=== PATIENT | male | born 1950 | race Caucasian/White ===

== ENCOUNTER 2022-10-13 14:23 | Inpatient (IN) | payer BC ==
[2022-10-13] MEDS: Ampicillin/Sulbactam Na 3 GM in Sodium Chloride 0.9% 100 ML IV SCH ×2 (16:40→21:54)
[2022-10-13] MEDS: Sodium Chloride 0.9% 10 ML Syringe FLUSH SCH ×4 (16:40→22:58)
[2022-10-13] MEDS ORDERED: Glucagon,Human Recombinant 1 MG Vial IM PRN (16:57)
[2022-10-13] MEDS ORDERED: 50% Dextrose in Water 50 ML Syringe IVPUSH PRN (16:57)
[2022-10-13] MEDS ORDERED: Docusate Sodium 100 MG Cap PO PRN (17:00)
[2022-10-13] MEDS: metFORMIN 500 MG Tab.ER PO SCH (17:23)
[2022-10-13] MEDS: Glimepiride 2 MG Tab PO SCH (17:32)
[2022-10-14] MEDS: Sodium Chloride 0.9% 10 ML Syringe FLUSH SCH ×8 (04:19→22:22)
[2022-10-14] MEDS: Ampicillin/Sulbactam Na 3 GM in Sodium Chloride 0.9% 100 ML IV SCH ×4 (04:20→22:13)
[2022-10-14 07:16] LABS: BASOPHILS ABSOLUTE AUTO 0.03 K/uL (0.00-0.20); BASOPHILS PERCENT AUTO 0.5 % (0.0-2.0); EOSINOPHILS ABSOLUTE AUTO 0.21 K/uL (0.00-0.50); EOSINOPHILS PERCENT AUTO 3.2 % (0.0-5.0); HEMATOCRIT 29.5 % (39.0-49.0); HEMOGLOBIN 9.5 g/dL (13.1-16.8); LYMPHOCYTES ABSOLUTE AUTO 1.41 K/uL (0.50-3.50); LYMPHOCYTES PERCENT AUTO 21.2 % (10.0-50.0); MEAN CORPUSCULAR HEMOGLOBIN 28.6 pg (28.2-33.3); MEAN CORPUSCULAR HGB CONC 32.2 g/dL (31.7-36.0); MEAN CORPUSCULAR VOLUME 88.9 fL (84.0-98.0); MONOCYTES ABSOLUTE AUTO 0.44 K/uL (0.00-1.00); MONOCYTES PERCENT AUTO 6.6 % (2.0-14.0); NEUTROPHILS ABSOLUTE AUTO 4.55 K/uL (1.40-7.00); NEUTROPHILS PERCENT AUTO 68.5 % (45.0-80.0); PLATELET COUNT,PLT 236 K/uL (150-350); RED BLOOD CELL COUNT 3.32 M/uL (4.33-5.41); RED CELL DISTRIBUTION WIDTH 16.1 % (11.2-14.1); WHITE BLOOD CELL COUNT,WBC 6.6 K/uL (4.0-10.2)
[2022-10-14 07:35] LABS: ALBUMIN 2.4 g/dL (3.4-5.0); BILIRUBIN TOTAL 0.3 mg/dL (0.2-1.0); CALCIUM 8.5 mg/dL (8.5-10.1); CREATININE 0.94 mg/dL (0.51-1.17); EST CRCL DRUG DOSING (CG) 80.26 mL/min; POTASSIUM,K 3.8 mmol/L (3.5-5.1); PROTEIN TOTAL,TP 6.5 g/dL (6.4-8.2)
[2022-10-14] MEDS: Ferrous Sulfate 325 MG Tab PO SCH (08:05)
[2022-10-14] MEDS: Oxybutynin 5 MG Tab.ER PO SCH (08:06)
[2022-10-14] MEDS: Tamsulosin 0.4 MG Cap.ER PO SCH (08:06)
[2022-10-14] MEDS: Lisinopril 20 MG Tab PO SCH (08:06)
[2022-10-14] MEDS: Finasteride 5 MG Tab PO SCH (08:07)
[2022-10-14] MEDS: Glimepiride 2 MG Tab PO SCH ×2 (08:07→17:31)
[2022-10-14] MEDS: metFORMIN 500 MG Tab.ER PO SCH (08:07)
[2022-10-14] MEDS: Multivitamin Tab PO SCH (08:07)
[2022-10-14] MEDS: atorvaSTATin 20 MG Tab PO SCH (08:07)
[2022-10-14] MEDS: Aspirin 81 MG Tab.EC PO SCH (08:07)
[2022-10-14] MEDS: Magnesium Oxide 400 MG Tab PO SCH (08:07)
[2022-10-14] MEDS: Hydrochlorothiazide 25 MG Tab PO SCH (08:07)
[2022-10-14] MEDS: Brimonidine 0.2% Ophth Soln 5 ML Bottle EYELF SCH (08:11)
[2022-10-14] MEDS: Insulin Glarg,Human.Rec.Analog 100 Unit/ML SUBCUT SCH (08:11)
[2022-10-14] MEDS: Timolol Maleate 0.5% Ophth Soln 5 ML Bottle EYELF SCH (08:11)
[2022-10-14] MEDS: metFORMIN 500 MG Tab PO SCH (17:31)
[2022-10-14] MEDS: Acetaminophen 500 MG Tab PO PRN (22:26)
[2022-10-15] MEDS: Sodium Chloride 0.9% 10 ML Syringe FLUSH SCH ×8 (03:34→22:06)
[2022-10-15] MEDS: Ampicillin/Sulbactam Na 3 GM in Sodium Chloride 0.9% 100 ML IV SCH ×4 (03:35→22:04)
[2022-10-15] MEDS: Acetaminophen 500 MG Tab PO PRN ×2 (04:50→23:39)
[2022-10-15] MEDS: Brimonidine 0.2% Ophth Soln 5 ML Bottle EYELF SCH (07:36)
[2022-10-15] MEDS: Timolol Maleate 0.5% Ophth Soln 5 ML Bottle EYELF SCH (07:37)
[2022-10-15] MEDS: Aspirin 81 MG Tab.EC PO SCH (07:38)
[2022-10-15] MEDS: Multivitamin Tab PO SCH (07:38)
[2022-10-15] MEDS: Finasteride 5 MG Tab PO SCH (07:39)
[2022-10-15] MEDS: Tamsulosin 0.4 MG Cap.ER PO SCH (07:39)
[2022-10-15] MEDS: Magnesium Oxide 400 MG Tab PO SCH (07:39)
[2022-10-15] MEDS: Glimepiride 2 MG Tab PO SCH ×2 (07:39→17:07)
[2022-10-15] MEDS: atorvaSTATin 20 MG Tab PO SCH (07:40)
[2022-10-15] MEDS: Lisinopril 20 MG Tab PO SCH (07:41)
[2022-10-15] MEDS: Oxybutynin 5 MG Tab.ER PO SCH (07:41)
[2022-10-15] MEDS: Cholecalciferol (Vitamin D3) 25 MCG Tab PO SCH (07:41)
[2022-10-15] MEDS: Hydrochlorothiazide 25 MG Tab PO SCH (07:42)
[2022-10-15] MEDS: metFORMIN 500 MG Tab PO SCH ×2 (07:42→17:07)
[2022-10-15] MEDS: Ferrous Sulfate 325 MG Tab PO SCH (07:44)
[2022-10-15] MEDS: Insulin Glarg,Human.Rec.Analog 100 Unit/ML SUBCUT SCH (08:59)
[2022-10-16] MEDS: Ampicillin/Sulbactam Na 3 GM in Sodium Chloride 0.9% 100 ML IV SCH ×4 (05:25→21:53)
[2022-10-16] MEDS: Sodium Chloride 0.9% 10 ML Syringe FLUSH SCH ×7 (05:25→23:00)
[2022-10-16] MEDS: Aspirin 81 MG Tab.EC PO SCH (08:27)
[2022-10-16] MEDS: Magnesium Oxide 400 MG Tab PO SCH (08:28)
[2022-10-16] MEDS: Glimepiride 2 MG Tab PO SCH ×2 (08:28→17:37)
[2022-10-16] MEDS: metFORMIN 500 MG Tab PO SCH ×2 (08:29→17:37)
[2022-10-16] MEDS: Finasteride 5 MG Tab PO SCH (08:29)
[2022-10-16] MEDS: Oxybutynin 5 MG Tab.ER PO SCH (08:30)
[2022-10-16] MEDS: atorvaSTATin 20 MG Tab PO SCH (08:30)
[2022-10-16] MEDS: Ferrous Sulfate 325 MG Tab PO SCH (08:31)
[2022-10-16] MEDS: Lisinopril 20 MG Tab PO SCH (08:31)
[2022-10-16] MEDS: Multivitamin Tab PO SCH (08:31)
[2022-10-16] MEDS: Tamsulosin 0.4 MG Cap.ER PO SCH (08:32)
[2022-10-16] MEDS: Brimonidine 0.2% Ophth Soln 5 ML Bottle EYELF SCH (08:32)
[2022-10-16] MEDS: Hydrochlorothiazide 25 MG Tab PO SCH (08:37)
[2022-10-16] MEDS: Cholecalciferol (Vitamin D3) 25 MCG Tab PO SCH (08:38)
[2022-10-16] MEDS: Timolol Maleate 0.5% Ophth Soln 5 ML Bottle EYELF SCH (08:39)
[2022-10-16] MEDS: Insulin Glarg,Human.Rec.Analog 100 Unit/ML SUBCUT SCH (12:27)
[2022-10-16] MEDS: Acetaminophen 500 MG Tab PO PRN (23:42)
[2022-10-16] MEDS: diphenhydrAMINE 25 MG Cap PO PRN (23:42)
[2022-10-17] MEDS: Sodium Chloride 0.9% 10 ML Syringe FLUSH SCH ×10 (01:09→23:33)
[2022-10-17] MEDS: Ampicillin/Sulbactam Na 3 GM in Sodium Chloride 0.9% 100 ML IV SCH ×4 (03:22→22:23)
[2022-10-17] MEDS: Oxybutynin 5 MG Tab.ER PO SCH (08:21)
[2022-10-17] MEDS: metFORMIN 500 MG Tab PO SCH ×2 (08:22→17:26)
[2022-10-17] MEDS: Ferrous Sulfate 325 MG Tab PO SCH (08:22)
[2022-10-17] MEDS: Aspirin 81 MG Tab.EC PO SCH (08:22)
[2022-10-17] MEDS: Magnesium Oxide 400 MG Tab PO SCH (08:22)
[2022-10-17] MEDS: atorvaSTATin 20 MG Tab PO SCH (08:22)
[2022-10-17] MEDS: Glimepiride 2 MG Tab PO SCH ×2 (08:23→17:26)
[2022-10-17] MEDS: Finasteride 5 MG Tab PO SCH (08:23)
[2022-10-17] MEDS: Hydrochlorothiazide 25 MG Tab PO SCH (08:23)
[2022-10-17] MEDS: Multivitamin Tab PO SCH (08:23)
[2022-10-17] MEDS: Tamsulosin 0.4 MG Cap.ER PO SCH (08:23)
[2022-10-17] MEDS: Cholecalciferol (Vitamin D3) 25 MCG Tab PO SCH (08:23)
[2022-10-17] MEDS: Lisinopril 20 MG Tab PO SCH (08:24)
[2022-10-17] MEDS: Timolol Maleate 0.5% Ophth Soln 5 ML Bottle EYELF SCH (08:25)
[2022-10-17] MEDS: Brimonidine 0.2% Ophth Soln 5 ML Bottle EYELF SCH (08:34)
[2022-10-17] MEDS: Insulin Glarg,Human.Rec.Analog 100 Unit/ML SUBCUT SCH (16:00)
[2022-10-18] MEDS: Ampicillin/Sulbactam Na 3 GM in Sodium Chloride 0.9% 100 ML IV SCH ×4 (04:31→21:49)
[2022-10-18] MEDS: Sodium Chloride 0.9% 10 ML Syringe FLUSH SCH ×7 (04:32→21:49)
[2022-10-18] MEDS: Multivitamin Tab PO SCH (08:38)
[2022-10-18] MEDS: Lisinopril 20 MG Tab PO SCH (08:39)
[2022-10-18] MEDS: Cholecalciferol (Vitamin D3) 25 MCG Tab PO SCH (08:39)
[2022-10-18] MEDS: metFORMIN 500 MG Tab PO SCH ×2 (08:40→17:31)
[2022-10-18] MEDS: Tamsulosin 0.4 MG Cap.ER PO SCH (08:41)
[2022-10-18] MEDS: Glimepiride 2 MG Tab PO SCH ×2 (08:41→17:31)
[2022-10-18] MEDS: Magnesium Oxide 400 MG Tab PO SCH (08:41)
[2022-10-18] MEDS: Aspirin 81 MG Tab.EC PO SCH (08:42)
[2022-10-18] MEDS: Finasteride 5 MG Tab PO SCH (08:43)
[2022-10-18] MEDS: atorvaSTATin 20 MG Tab PO SCH (08:43)
[2022-10-18] MEDS: Hydrochlorothiazide 25 MG Tab PO SCH (08:43)
[2022-10-18] MEDS: Oxybutynin 5 MG Tab.ER PO SCH (08:44)
[2022-10-18] MEDS: Ferrous Sulfate 325 MG Tab PO SCH (08:45)
[2022-10-18] MEDS: Insulin Glarg,Human.Rec.Analog 100 Unit/ML SUBCUT SCH (08:46)
[2022-10-18] MEDS: Brimonidine 0.2% Ophth Soln 5 ML Bottle EYELF SCH (08:48)
[2022-10-18] MEDS: Timolol Maleate 0.5% Ophth Soln 5 ML Bottle EYELF SCH (08:48)
[2022-10-18] MEDS: Acetaminophen 500 MG Tab PO PRN (23:58)
[2022-10-18] MEDS: diphenhydrAMINE 25 MG Cap PO PRN (23:58)
[2022-10-19] MEDS: Sodium Chloride 0.9% 10 ML Syringe FLUSH SCH ×9 (04:21→22:34)
[2022-10-19] MEDS: Ampicillin/Sulbactam Na 3 GM in Sodium Chloride 0.9% 100 ML IV SCH ×4 (04:22→21:32)
[2022-10-19] MEDS: Cholecalciferol (Vitamin D3) 25 MCG Tab PO SCH (08:18)
[2022-10-19] MEDS: Glimepiride 2 MG Tab PO SCH ×2 (08:18→17:07)
[2022-10-19] MEDS: Magnesium Oxide 400 MG Tab PO SCH (08:19)
[2022-10-19] MEDS: Hydrochlorothiazide 25 MG Tab PO SCH (08:19)
[2022-10-19] MEDS: Finasteride 5 MG Tab PO SCH (08:19)
[2022-10-19] MEDS: metFORMIN 500 MG Tab PO SCH ×2 (08:19→17:07)
[2022-10-19] MEDS: atorvaSTATin 20 MG Tab PO SCH (08:19)
[2022-10-19] MEDS: Multivitamin Tab PO SCH (08:19)
[2022-10-19] MEDS: Tamsulosin 0.4 MG Cap.ER PO SCH (08:19)
[2022-10-19] MEDS: Lisinopril 20 MG Tab PO SCH (08:19)
[2022-10-19] MEDS: Ferrous Sulfate 325 MG Tab PO SCH (08:19)
[2022-10-19] MEDS: Oxybutynin 5 MG Tab.ER PO SCH (08:20)
[2022-10-19] MEDS: Aspirin 81 MG Tab.EC PO SCH (08:20)
[2022-10-19] MEDS: Timolol Maleate 0.5% Ophth Soln 5 ML Bottle EYELF SCH (08:21)
[2022-10-19] MEDS: Brimonidine 0.2% Ophth Soln 5 ML Bottle EYELF SCH (08:32)
[2022-10-19] MEDS: diphenhydrAMINE 25 MG Cap PO PRN (22:47)
[2022-10-19] MEDS: Acetaminophen 500 MG Tab PO PRN (22:47)
[2022-10-20] MEDS: Sodium Chloride 0.9% 10 ML Syringe FLUSH SCH ×8 (04:19→22:54)
[2022-10-20] MEDS: Ampicillin/Sulbactam Na 3 GM in Sodium Chloride 0.9% 100 ML IV SCH ×4 (04:20→21:48)
[2022-10-20] MEDS: Brimonidine 0.2% Ophth Soln 5 ML Bottle EYELF SCH (08:08)
[2022-10-20] MEDS: Timolol Maleate 0.5% Ophth Soln 5 ML Bottle EYELF SCH (08:09)
[2022-10-20] MEDS: atorvaSTATin 20 MG Tab PO SCH (08:31)
[2022-10-20] MEDS: Cholecalciferol (Vitamin D3) 25 MCG Tab PO SCH (08:31)
[2022-10-20] MEDS: metFORMIN 500 MG Tab PO SCH ×2 (08:32→17:18)
[2022-10-20] MEDS: Oxybutynin 5 MG Tab.ER PO SCH (08:32)
[2022-10-20] MEDS: Tamsulosin 0.4 MG Cap.ER PO SCH (08:32)
[2022-10-20] MEDS: Ferrous Sulfate 325 MG Tab PO SCH (08:33)
[2022-10-20] MEDS: Glimepiride 2 MG Tab PO SCH ×2 (08:33→17:18)
[2022-10-20] MEDS: Finasteride 5 MG Tab PO SCH (08:33)
[2022-10-20] MEDS: Magnesium Oxide 400 MG Tab PO SCH (08:33)
[2022-10-20] MEDS: Aspirin 81 MG Tab.EC PO SCH (08:33)
[2022-10-20] MEDS: Hydrochlorothiazide 25 MG Tab PO SCH (08:34)
[2022-10-20] MEDS: Lisinopril 20 MG Tab PO SCH (08:34)
[2022-10-20] MEDS: Multivitamin Tab PO SCH (08:34)
[2022-10-20] MEDS: Acetaminophen 500 MG Tab PO PRN ×2 (09:09→21:50)
[2022-10-20 15:59] LABS: BASOPHILS ABSOLUTE AUTO 0.03 K/uL (0.00-0.20); BASOPHILS PERCENT AUTO 0.5 % (0.0-2.0); EOSINOPHILS ABSOLUTE AUTO 0.17 K/uL (0.00-0.50); EOSINOPHILS PERCENT AUTO 3.1 % (0.0-5.0); HEMATOCRIT 31.4 % (39.0-49.0); HEMOGLOBIN 10.2 g/dL (13.1-16.8); LYMPHOCYTES ABSOLUTE AUTO 1.25 K/uL (0.50-3.50); LYMPHOCYTES PERCENT AUTO 22.5 % (10.0-50.0); MEAN CORPUSCULAR HEMOGLOBIN 28.8 pg (28.2-33.3); MEAN CORPUSCULAR HGB CONC 32.5 g/dL (31.7-36.0); MEAN CORPUSCULAR VOLUME 88.7 fL (84.0-98.0); MONOCYTES ABSOLUTE AUTO 0.42 K/uL (0.00-1.00); MONOCYTES PERCENT AUTO 7.6 % (2.0-14.0); NEUTROPHILS ABSOLUTE AUTO 3.68 K/uL (1.40-7.00); NEUTROPHILS PERCENT AUTO 66.3 % (45.0-80.0); PLATELET COUNT,PLT 163 K/uL (150-350); RED BLOOD CELL COUNT 3.54 M/uL (4.33-5.41); RED CELL DISTRIBUTION WIDTH 16.5 % (11.2-14.1); WHITE BLOOD CELL COUNT,WBC 5.6 K/uL (4.0-10.2)
[2022-10-20 16:10] LABS: ANION GAP 8.6 meq/L (7-15); CALCIUM 8.9 mg/dL (8.5-10.1); CARBON DIOXIDE,CO2 28.4 mmol/L (21.0-32.0); CREATININE 1.07 mg/dL (0.51-1.17); EST CRCL DRUG DOSING (CG) 70.51 mL/min
[2022-10-20] MEDS: diphenhydrAMINE 25 MG Cap PO PRN (21:50)
[2022-10-21] MEDS: Sodium Chloride 0.9% 10 ML Syringe FLUSH SCH ×8 (04:05→23:07)
[2022-10-21] MEDS: Ampicillin/Sulbactam Na 3 GM in Sodium Chloride 0.9% 100 ML IV SCH ×4 (04:06→22:07)
[2022-10-21] MEDS: Multivitamin Tab PO SCH (08:01)
[2022-10-21] MEDS: Ferrous Sulfate 325 MG Tab PO SCH (08:02)
[2022-10-21] MEDS: Tamsulosin 0.4 MG Cap.ER PO SCH (08:02)
[2022-10-21] MEDS: Magnesium Oxide 400 MG Tab PO SCH (08:03)
[2022-10-21] MEDS: Oxybutynin 5 MG Tab.ER PO SCH (08:08)
[2022-10-21] MEDS: atorvaSTATin 20 MG Tab PO SCH (08:08)
[2022-10-21] MEDS: Aspirin 81 MG Tab.EC PO SCH (08:08)
[2022-10-21] MEDS: metFORMIN 500 MG Tab PO SCH ×2 (08:10→17:05)
[2022-10-21] MEDS: Glimepiride 2 MG Tab PO SCH ×2 (08:14→17:07)
[2022-10-21] MEDS: Finasteride 5 MG Tab PO SCH (08:14)
[2022-10-21] MEDS: Hydrochlorothiazide 25 MG Tab PO SCH (08:14)
[2022-10-21] MEDS: Cholecalciferol (Vitamin D3) 25 MCG Tab PO SCH (08:15)
[2022-10-21] MEDS: Brimonidine 0.2% Ophth Soln 5 ML Bottle EYELF SCH (08:17)
[2022-10-21] MEDS: Timolol Maleate 0.5% Ophth Soln 5 ML Bottle EYELF SCH (08:22)
[2022-10-21] MEDS: Lisinopril 20 MG Tab PO SCH (08:25)
[2022-10-21] MEDS: diphenhydrAMINE 25 MG Cap PO PRN (22:07)
[2022-10-21] MEDS: Acetaminophen 500 MG Tab PO PRN (22:11)
[2022-10-22] MEDS: Sodium Chloride 0.9% 10 ML Syringe FLUSH SCH ×8 (04:11→22:34)
[2022-10-22] MEDS: Ampicillin/Sulbactam Na 3 GM in Sodium Chloride 0.9% 100 ML IV SCH ×4 (04:11→22:34)
[2022-10-22] MEDS: Oxybutynin 5 MG Tab.ER PO SCH (07:50)
[2022-10-22] MEDS: Timolol Maleate 0.5% Ophth Soln 5 ML Bottle EYELF SCH (07:50)
[2022-10-22] MEDS: atorvaSTATin 20 MG Tab PO SCH (07:52)
[2022-10-22] MEDS: Cholecalciferol (Vitamin D3) 25 MCG Tab PO SCH (07:52)
[2022-10-22] MEDS: Ferrous Sulfate 325 MG Tab PO SCH (07:53)
[2022-10-22] MEDS: Aspirin 81 MG Tab.EC PO SCH (07:53)
[2022-10-22] MEDS: Magnesium Oxide 400 MG Tab PO SCH (07:53)
[2022-10-22] MEDS: Lisinopril 20 MG Tab PO SCH (07:54)
[2022-10-22] MEDS: Glimepiride 2 MG Tab PO SCH ×2 (07:56→17:03)
[2022-10-22] MEDS: Multivitamin Tab PO SCH (07:56)
[2022-10-22] MEDS: Hydrochlorothiazide 25 MG Tab PO SCH (07:58)
[2022-10-22] MEDS: metFORMIN 500 MG Tab PO SCH ×2 (07:58→17:03)
[2022-10-22] MEDS: Tamsulosin 0.4 MG Cap.ER PO SCH (07:59)
[2022-10-22] MEDS: Finasteride 5 MG Tab PO SCH (08:00)
[2022-10-22] MEDS: Brimonidine 0.2% Ophth Soln 5 ML Bottle EYELF SCH (08:00)
[2022-10-22] MEDS: diphenhydrAMINE 25 MG Cap PO PRN (23:32)
[2022-10-22] MEDS: Acetaminophen 500 MG Tab PO PRN (23:32)
[2022-10-23] MEDS: Sodium Chloride 0.9% 10 ML Syringe FLUSH SCH ×8 (03:53→22:19)
[2022-10-23] MEDS: Ampicillin/Sulbactam Na 3 GM in Sodium Chloride 0.9% 100 ML IV SCH ×4 (03:53→22:19)
[2022-10-23] MEDS: Timolol Maleate 0.5% Ophth Soln 5 ML Bottle EYELF SCH (08:32)
[2022-10-23] MEDS: Tamsulosin 0.4 MG Cap.ER PO SCH (08:33)
[2022-10-23] MEDS: metFORMIN 500 MG Tab PO SCH ×2 (08:33→17:12)
[2022-10-23] MEDS: Ferrous Sulfate 325 MG Tab PO SCH (08:34)
[2022-10-23] MEDS: Glimepiride 2 MG Tab PO SCH ×2 (08:34→17:11)
[2022-10-23] MEDS: Finasteride 5 MG Tab PO SCH (08:34)
[2022-10-23] MEDS: Aspirin 81 MG Tab.EC PO SCH (08:34)
[2022-10-23] MEDS: Multivitamin Tab PO SCH (08:34)
[2022-10-23] MEDS: Magnesium Oxide 400 MG Tab PO SCH (08:35)
[2022-10-23] MEDS: Cholecalciferol (Vitamin D3) 25 MCG Tab PO SCH (08:36)
[2022-10-23] MEDS: Hydrochlorothiazide 25 MG Tab PO SCH (08:37)
[2022-10-23] MEDS: atorvaSTATin 20 MG Tab PO SCH (08:37)
[2022-10-23] MEDS: Oxybutynin 5 MG Tab.ER PO SCH (08:38)
[2022-10-23] MEDS: Lisinopril 20 MG Tab PO SCH (08:38)
[2022-10-23] MEDS: Brimonidine 0.2% Ophth Soln 5 ML Bottle EYELF SCH (08:40)
[2022-10-23] MEDS: diphenhydrAMINE 25 MG Cap PO PRN (23:21)
[2022-10-23] MEDS: Acetaminophen 500 MG Tab PO PRN (23:21)
[2022-10-24] MEDS: Ampicillin/Sulbactam Na 3 GM in Sodium Chloride 0.9% 100 ML IV SCH ×4 (04:04→21:40)
[2022-10-24] MEDS: Sodium Chloride 0.9% 10 ML Syringe FLUSH SCH ×8 (04:04→22:07)
[2022-10-24] MEDS: Multivitamin Tab PO SCH (08:25)
[2022-10-24] MEDS: Cholecalciferol (Vitamin D3) 25 MCG Tab PO SCH (08:25)
[2022-10-24] MEDS: Aspirin 81 MG Tab.EC PO SCH (08:26)
[2022-10-24] MEDS: Oxybutynin 5 MG Tab.ER PO SCH (08:27)
[2022-10-24] MEDS: metFORMIN 500 MG Tab PO SCH ×2 (08:27→17:46)
[2022-10-24] MEDS: Finasteride 5 MG Tab PO SCH (08:27)
[2022-10-24] MEDS: Tamsulosin 0.4 MG Cap.ER PO SCH (08:28)
[2022-10-24] MEDS: atorvaSTATin 20 MG Tab PO SCH (08:28)
[2022-10-24] MEDS: Ferrous Sulfate 325 MG Tab PO SCH (08:29)
[2022-10-24] MEDS: Hydrochlorothiazide 25 MG Tab PO SCH (08:29)
[2022-10-24] MEDS: Glimepiride 2 MG Tab PO SCH ×2 (08:29→17:46)
[2022-10-24] MEDS: Lisinopril 20 MG Tab PO SCH (08:29)
[2022-10-24] MEDS: Magnesium Oxide 400 MG Tab PO SCH (08:29)
[2022-10-24] MEDS: Brimonidine 0.2% Ophth Soln 5 ML Bottle EYELF SCH (08:30)
[2022-10-24] MEDS: Timolol Maleate 0.5% Ophth Soln 5 ML Bottle EYELF SCH (08:30)
[2022-10-25] MEDS: Ampicillin/Sulbactam Na 3 GM in Sodium Chloride 0.9% 100 ML IV SCH ×5 (03:38→22:07)
[2022-10-25] MEDS: Sodium Chloride 0.9% 10 ML Syringe FLUSH SCH ×10 (03:39→22:07)
[2022-10-25] MEDS: Multivitamin Tab PO SCH (07:24)
[2022-10-25] MEDS: Aspirin 81 MG Tab.EC PO SCH (07:24)
[2022-10-25] MEDS: Oxybutynin 5 MG Tab.ER PO SCH (07:24)
[2022-10-25] MEDS: Finasteride 5 MG Tab PO SCH (07:24)
[2022-10-25] MEDS: Tamsulosin 0.4 MG Cap.ER PO SCH (07:24)
[2022-10-25] MEDS: Cholecalciferol (Vitamin D3) 25 MCG Tab PO SCH (07:24)
[2022-10-25] MEDS: Magnesium Oxide 400 MG Tab PO SCH (07:24)
[2022-10-25] MEDS: Ferrous Sulfate 325 MG Tab PO SCH (07:25)
[2022-10-25] MEDS: atorvaSTATin 20 MG Tab PO SCH (07:25)
[2022-10-25] MEDS: metFORMIN 500 MG Tab PO SCH ×2 (07:25→17:04)
[2022-10-25] MEDS: Lisinopril 20 MG Tab PO SCH (07:26)
[2022-10-25] MEDS: Glimepiride 2 MG Tab PO SCH ×2 (07:26→17:04)
[2022-10-25] MEDS: Brimonidine 0.2% Ophth Soln 5 ML Bottle EYELF SCH (07:27)
[2022-10-25] MEDS: Timolol Maleate 0.5% Ophth Soln 5 ML Bottle EYELF SCH (07:27)
[2022-10-25] MEDS: Hydrochlorothiazide 25 MG Tab PO SCH (07:27)
[2022-10-25] MEDS: Acetaminophen 500 MG Tab PO PRN (08:17)
[2022-10-25] MEDS: Simethicone 125 MG Tab.Chew PO PRN (08:18)
[2022-10-26] MEDS: Sodium Chloride 0.9% 10 ML Syringe FLUSH SCH ×8 (04:50→22:42)
[2022-10-26] MEDS: Ampicillin/Sulbactam Na 3 GM in Sodium Chloride 0.9% 100 ML IV SCH ×4 (04:50→21:35)
[2022-10-26] MEDS: Oxybutynin 5 MG Tab.ER PO SCH (07:59)
[2022-10-26] MEDS: Multivitamin Tab PO SCH (07:59)
[2022-10-26] MEDS: Tamsulosin 0.4 MG Cap.ER PO SCH (07:59)
[2022-10-26] MEDS: Glimepiride 2 MG Tab PO SCH ×2 (07:59→17:53)
[2022-10-26] MEDS: Finasteride 5 MG Tab PO SCH (07:59)
[2022-10-26] MEDS: Magnesium Oxide 400 MG Tab PO SCH (08:00)
[2022-10-26] MEDS: metFORMIN 500 MG Tab PO SCH ×2 (08:00→17:53)
[2022-10-26] MEDS: Hydrochlorothiazide 25 MG Tab PO SCH (08:00)
[2022-10-26] MEDS: Aspirin 81 MG Tab.EC PO SCH (08:00)
[2022-10-26] MEDS: atorvaSTATin 20 MG Tab PO SCH (08:00)
[2022-10-26] MEDS: Ferrous Sulfate 325 MG Tab PO SCH (08:00)
[2022-10-26] MEDS: Cholecalciferol (Vitamin D3) 25 MCG Tab PO SCH (08:00)
[2022-10-26] MEDS: Timolol Maleate 0.5% Ophth Soln 5 ML Bottle EYELF SCH (08:01)
[2022-10-26] MEDS: Lisinopril 20 MG Tab PO SCH (08:01)
[2022-10-26] MEDS: Brimonidine 0.2% Ophth Soln 5 ML Bottle EYELF SCH (08:01)
[2022-10-27] MEDS: Sodium Chloride 0.9% 10 ML Syringe FLUSH SCH ×8 (04:01→22:21)
[2022-10-27] MEDS: Ampicillin/Sulbactam Na 3 GM in Sodium Chloride 0.9% 100 ML IV SCH ×4 (04:01→22:20)
[2022-10-27] MEDS: Cholecalciferol (Vitamin D3) 25 MCG Tab PO SCH (07:42)
[2022-10-27] MEDS: metFORMIN 500 MG Tab PO SCH ×2 (07:42→17:20)
[2022-10-27] MEDS: atorvaSTATin 20 MG Tab PO SCH (07:42)
[2022-10-27] MEDS: Ferrous Sulfate 325 MG Tab PO SCH (07:42)
[2022-10-27] MEDS: Magnesium Oxide 400 MG Tab PO SCH (07:42)
[2022-10-27] MEDS: Lisinopril 20 MG Tab PO SCH (07:42)
[2022-10-27] MEDS: Hydrochlorothiazide 25 MG Tab PO SCH (07:43)
[2022-10-27] MEDS: Aspirin 81 MG Tab.EC PO SCH (07:43)
[2022-10-27] MEDS: Tamsulosin 0.4 MG Cap.ER PO SCH (07:43)
[2022-10-27] MEDS: Glimepiride 2 MG Tab PO SCH ×2 (07:43→17:20)
[2022-10-27] MEDS: Finasteride 5 MG Tab PO SCH (07:43)
[2022-10-27] MEDS: Multivitamin Tab PO SCH (07:43)
[2022-10-27] MEDS: Oxybutynin 5 MG Tab.ER PO SCH (07:43)
[2022-10-27] MEDS: Brimonidine 0.2% Ophth Soln 5 ML Bottle EYELF SCH (07:46)
[2022-10-27] MEDS: Timolol Maleate 0.5% Ophth Soln 5 ML Bottle EYELF SCH (07:53)
[2022-10-27] MEDS: Simethicone 125 MG Tab.Chew PO PRN (10:00)
[2022-10-28] MEDS: Sodium Chloride 0.9% 10 ML Syringe FLUSH SCH ×8 (04:18→22:10)
[2022-10-28] MEDS: Ampicillin/Sulbactam Na 3 GM in Sodium Chloride 0.9% 100 ML IV SCH ×4 (04:19→22:10)
[2022-10-28] MEDS: Brimonidine 0.2% Ophth Soln 5 ML Bottle EYELF SCH (07:44)
[2022-10-28] MEDS: Timolol Maleate 0.5% Ophth Soln 5 ML Bottle EYELF SCH (07:45)
[2022-10-28] MEDS: Ferrous Sulfate 325 MG Tab PO SCH (07:46)
[2022-10-28] MEDS: metFORMIN 500 MG Tab PO SCH ×2 (07:46→17:12)
[2022-10-28] MEDS: Glimepiride 2 MG Tab PO SCH ×2 (07:47→17:12)
[2022-10-28] MEDS: Magnesium Oxide 400 MG Tab PO SCH (07:47)
[2022-10-28] MEDS: Tamsulosin 0.4 MG Cap.ER PO SCH (07:47)
[2022-10-28] MEDS: Lisinopril 20 MG Tab PO SCH (07:49)
[2022-10-28] MEDS: Oxybutynin 5 MG Tab.ER PO SCH (07:49)
[2022-10-28] MEDS: Hydrochlorothiazide 25 MG Tab PO SCH (07:50)
[2022-10-28] MEDS: atorvaSTATin 20 MG Tab PO SCH (07:50)
[2022-10-28] MEDS: Multivitamin Tab PO SCH (07:50)
[2022-10-28] MEDS: Aspirin 81 MG Tab.EC PO SCH (07:50)
[2022-10-28] MEDS: Finasteride 5 MG Tab PO SCH (07:50)
[2022-10-28] MEDS: Cholecalciferol (Vitamin D3) 25 MCG Tab PO SCH (07:51)
[2022-10-29] MEDS: Sodium Chloride 0.9% 10 ML Syringe FLUSH SCH ×8 (04:25→22:10)
[2022-10-29] MEDS: Ampicillin/Sulbactam Na 3 GM in Sodium Chloride 0.9% 100 ML IV SCH ×4 (04:26→22:09)
[2022-10-29] MEDS: Ferrous Sulfate 325 MG Tab PO SCH (07:45)
[2022-10-29] MEDS: Timolol Maleate 0.5% Ophth Soln 5 ML Bottle EYELF SCH (07:45)
[2022-10-29] MEDS: Tamsulosin 0.4 MG Cap.ER PO SCH (07:45)
[2022-10-29] MEDS: Oxybutynin 5 MG Tab.ER PO SCH (07:45)
[2022-10-29] MEDS: Brimonidine 0.2% Ophth Soln 5 ML Bottle EYELF SCH (07:45)
[2022-10-29] MEDS: metFORMIN 500 MG Tab PO SCH ×2 (07:46→17:24)
[2022-10-29] MEDS: Hydrochlorothiazide 25 MG Tab PO SCH (07:49)
[2022-10-29] MEDS: Cholecalciferol (Vitamin D3) 25 MCG Tab PO SCH (07:49)
[2022-10-29] MEDS: Aspirin 81 MG Tab.EC PO SCH (07:50)
[2022-10-29] MEDS: Multivitamin Tab PO SCH (07:51)
[2022-10-29] MEDS: Finasteride 5 MG Tab PO SCH (07:51)
[2022-10-29] MEDS: Glimepiride 2 MG Tab PO SCH ×2 (07:51→17:24)
[2022-10-29] MEDS: Magnesium Oxide 400 MG Tab PO SCH (07:51)
[2022-10-29] MEDS: atorvaSTATin 20 MG Tab PO SCH (07:51)
[2022-10-29] MEDS: Lisinopril 20 MG Tab PO SCH (07:51)
[2022-10-29] MEDS: diphenhydrAMINE 25 MG Cap PO PRN (23:24)
[2022-10-29] MEDS: Acetaminophen 500 MG Tab PO PRN (23:24)
[2022-10-30] MEDS: Sodium Chloride 0.9% 10 ML Syringe FLUSH SCH ×8 (03:57→23:30)
[2022-10-30] MEDS: Ampicillin/Sulbactam Na 3 GM in Sodium Chloride 0.9% 100 ML IV SCH ×4 (03:57→22:24)
[2022-10-30] MEDS: Lisinopril 20 MG Tab PO SCH (08:09)
[2022-10-30] MEDS: Oxybutynin 5 MG Tab.ER PO SCH (08:09)
[2022-10-30] MEDS: Multivitamin Tab PO SCH (08:09)
[2022-10-30] MEDS: Cholecalciferol (Vitamin D3) 25 MCG Tab PO SCH (08:10)
[2022-10-30] MEDS: Hydrochlorothiazide 25 MG Tab PO SCH (08:12)
[2022-10-30] MEDS: Magnesium Oxide 400 MG Tab PO SCH (08:12)
[2022-10-30] MEDS: metFORMIN 500 MG Tab PO SCH ×2 (08:12→17:32)
[2022-10-30] MEDS: Brimonidine 0.2% Ophth Soln 5 ML Bottle EYELF SCH (08:12)
[2022-10-30] MEDS: Finasteride 5 MG Tab PO SCH (08:12)
[2022-10-30] MEDS: Tamsulosin 0.4 MG Cap.ER PO SCH (08:12)
[2022-10-30] MEDS: Glimepiride 2 MG Tab PO SCH ×2 (08:12→17:33)
[2022-10-30] MEDS: Ferrous Sulfate 325 MG Tab PO SCH (08:12)
[2022-10-30] MEDS: Aspirin 81 MG Tab.EC PO SCH (08:12)
[2022-10-30] MEDS: atorvaSTATin 20 MG Tab PO SCH (08:12)
[2022-10-30] MEDS: Timolol Maleate 0.5% Ophth Soln 5 ML Bottle EYELF SCH (08:13)
[2022-10-30] MEDS: Acetaminophen 500 MG Tab PO PRN (23:11)
[2022-10-30] MEDS: diphenhydrAMINE 25 MG Cap PO PRN (23:14)
[2022-10-31] MEDS: Sodium Chloride 0.9% 10 ML Syringe FLUSH SCH ×8 (04:01→22:38)
[2022-10-31] MEDS: Ampicillin/Sulbactam Na 3 GM in Sodium Chloride 0.9% 100 ML IV SCH ×4 (04:02→21:35)
[2022-10-31] MEDS: Timolol Maleate 0.5% Ophth Soln 5 ML Bottle EYELF SCH (08:22)
[2022-10-31] MEDS: Aspirin 81 MG Tab.EC PO SCH (08:23)
[2022-10-31] MEDS: Brimonidine 0.2% Ophth Soln 5 ML Bottle EYELF SCH (08:23)
[2022-10-31] MEDS: Oxybutynin 5 MG Tab.ER PO SCH (08:24)
[2022-10-31] MEDS: Magnesium Oxide 400 MG Tab PO SCH (08:25)
[2022-10-31] MEDS: Tamsulosin 0.4 MG Cap.ER PO SCH (08:25)
[2022-10-31] MEDS: Cholecalciferol (Vitamin D3) 25 MCG Tab PO SCH (08:26)
[2022-10-31] MEDS: atorvaSTATin 20 MG Tab PO SCH (08:26)
[2022-10-31] MEDS: Multivitamin Tab PO SCH (08:26)
[2022-10-31] MEDS: metFORMIN 500 MG Tab PO SCH ×2 (08:26→17:08)
[2022-10-31] MEDS: Ferrous Sulfate 325 MG Tab PO SCH (08:26)
[2022-10-31] MEDS: Lisinopril 20 MG Tab PO SCH (08:27)
[2022-10-31] MEDS: Glimepiride 2 MG Tab PO SCH ×2 (08:27→17:08)
[2022-10-31] MEDS: Hydrochlorothiazide 25 MG Tab PO SCH (08:28)
[2022-10-31] MEDS: Finasteride 5 MG Tab PO SCH (08:28)
[2022-10-31 11:36] LABS: HEMOGLOBIN 10.5 g/dL (13.1-16.8); MEAN CORPUSCULAR HEMOGLOBIN 28.8 pg (28.2-33.3); MEAN CORPUSCULAR HGB CONC 31.8 g/dL (31.7-36.0); MEAN CORPUSCULAR VOLUME 90.7 fL (84.0-98.0); PLATELET COUNT,PLT 138 K/uL (150-350); RED BLOOD CELL COUNT 3.64 M/uL (4.33-5.41); RED CELL DISTRIBUTION WIDTH 17.5 % (11.2-14.1)
[2022-10-31 11:50] LABS: ANION GAP 5.8 meq/L (7-15); CALCIUM 9.1 mg/dL (8.5-10.1); CARBON DIOXIDE,CO2 29.2 mmol/L (21.0-32.0); CREATININE 1.12 mg/dL (0.51-1.17); EST CRCL DRUG DOSING (CG) 67.36 mL/min; POTASSIUM,K 4.2 mmol/L (3.5-5.1)
[2022-11-01] MEDS: Ampicillin/Sulbactam Na 3 GM in Sodium Chloride 0.9% 100 ML IV SCH ×5 (03:03→21:40)
[2022-11-01] MEDS: Sodium Chloride 0.9% 10 ML Syringe FLUSH SCH ×11 (03:03→22:55)
[2022-11-01] MEDS ORDERED: Ampicillin/Sulbactam Na 3 GM in Sodium Chloride 0.9% 100 ML IV ONE (07:00)
[2022-11-01] MEDS: Oxybutynin 5 MG Tab.ER PO SCH (07:49)
[2022-11-01] MEDS: metFORMIN 500 MG Tab PO SCH ×2 (07:50→18:17)
[2022-11-01] MEDS: Ferrous Sulfate 325 MG Tab PO SCH (07:50)
[2022-11-01] MEDS: Tamsulosin 0.4 MG Cap.ER PO SCH (07:50)
[2022-11-01] MEDS: Cholecalciferol (Vitamin D3) 25 MCG Tab PO SCH (07:51)
[2022-11-01] MEDS: Multivitamin Tab PO SCH (07:52)
[2022-11-01] MEDS: Magnesium Oxide 400 MG Tab PO SCH (07:52)
[2022-11-01] MEDS: Aspirin 81 MG Tab.EC PO SCH (07:52)
[2022-11-01] MEDS: Glimepiride 2 MG Tab PO SCH ×2 (07:53→18:17)
[2022-11-01] MEDS: atorvaSTATin 20 MG Tab PO SCH (07:54)
[2022-11-01] MEDS: Lisinopril 20 MG Tab PO SCH (07:54)
[2022-11-01] MEDS: Finasteride 5 MG Tab PO SCH (07:54)
[2022-11-01] MEDS: Simethicone 125 MG Tab.Chew PO PRN (07:55)
[2022-11-01] MEDS: Timolol Maleate 0.5% Ophth Soln 5 ML Bottle EYELF SCH (08:00)
[2022-11-01] MEDS: Hydrochlorothiazide 25 MG Tab PO SCH (08:00)
[2022-11-01] MEDS: Brimonidine 0.2% Ophth Soln 5 ML Bottle EYELF SCH (08:00)
[2022-11-01] MEDS: diphenhydrAMINE 25 MG Cap PO PRN (23:04)
[2022-11-01] MEDS: Acetaminophen 500 MG Tab PO PRN (23:04)
[2022-11-02] MEDS: Ampicillin/Sulbactam Na 3 GM in Sodium Chloride 0.9% 100 ML IV SCH ×4 (04:07→22:45)
[2022-11-02] MEDS: Sodium Chloride 0.9% 10 ML Syringe FLUSH SCH ×8 (04:07→22:45)
[2022-11-02] MEDS: Brimonidine 0.2% Ophth Soln 5 ML Bottle EYELF SCH (08:39)
[2022-11-02] MEDS: Oxybutynin 5 MG Tab.ER PO SCH (08:40)
[2022-11-02] MEDS: metFORMIN 500 MG Tab PO SCH ×2 (08:40→17:00)
[2022-11-02] MEDS: Finasteride 5 MG Tab PO SCH (08:41)
[2022-11-02] MEDS: Magnesium Oxide 400 MG Tab PO SCH (08:41)
[2022-11-02] MEDS: Ferrous Sulfate 325 MG Tab PO SCH (08:41)
[2022-11-02] MEDS: Tamsulosin 0.4 MG Cap.ER PO SCH (08:41)
[2022-11-02] MEDS: Aspirin 81 MG Tab.EC PO SCH (08:41)
[2022-11-02] MEDS: atorvaSTATin 20 MG Tab PO SCH (08:42)
[2022-11-02] MEDS: Cholecalciferol (Vitamin D3) 25 MCG Tab PO SCH (08:42)
[2022-11-02] MEDS: Glimepiride 2 MG Tab PO SCH ×2 (08:43→17:00)
[2022-11-02] MEDS: Multivitamin Tab PO SCH (08:43)
[2022-11-02] MEDS: Timolol Maleate 0.5% Ophth Soln 5 ML Bottle EYELF SCH (08:43)
[2022-11-02] MEDS: Hydrochlorothiazide 25 MG Tab PO SCH (08:43)
[2022-11-02] MEDS: Lisinopril 20 MG Tab PO SCH (08:44)
[2022-11-02] MEDS ORDERED: Ampicillin/Sulbactam Na 3 GM in Sodium Chloride 0.9% 100 ML IV SCH (16:00)
[2022-11-02] MEDS: diphenhydrAMINE 25 MG Cap PO PRN (22:50)
[2022-11-02] MEDS: Acetaminophen 500 MG Tab PO PRN (22:50)
[2022-11-03] MEDS: Sodium Chloride 0.9% 10 ML Syringe FLUSH SCH ×8 (04:15→22:25)
[2022-11-03] MEDS: Ampicillin/Sulbactam Na 3 GM in Sodium Chloride 0.9% 100 ML IV SCH ×4 (04:16→21:39)
[2022-11-03] MEDS: Hydrochlorothiazide 25 MG Tab PO SCH (07:52)
[2022-11-03] MEDS: Cholecalciferol (Vitamin D3) 25 MCG Tab PO SCH (07:52)
[2022-11-03] MEDS: Multivitamin Tab PO SCH (07:52)
[2022-11-03] MEDS: Lisinopril 20 MG Tab PO SCH (07:52)
[2022-11-03] MEDS: atorvaSTATin 20 MG Tab PO SCH (07:52)
[2022-11-03] MEDS: Tamsulosin 0.4 MG Cap.ER PO SCH (07:52)
[2022-11-03] MEDS: Magnesium Oxide 400 MG Tab PO SCH (07:53)
[2022-11-03] MEDS: Finasteride 5 MG Tab PO SCH (07:53)
[2022-11-03] MEDS: Ferrous Sulfate 325 MG Tab PO SCH (07:53)
[2022-11-03] MEDS: Aspirin 81 MG Tab.EC PO SCH (07:53)
[2022-11-03] MEDS: metFORMIN 500 MG Tab PO SCH ×2 (07:53→19:08)
[2022-11-03] MEDS: Oxybutynin 5 MG Tab.ER PO SCH (07:53)
[2022-11-03] MEDS: Glimepiride 2 MG Tab PO SCH ×2 (07:54→19:09)
[2022-11-03] MEDS: Brimonidine 0.2% Ophth Soln 5 ML Bottle EYELF SCH (07:55)
[2022-11-03] MEDS: Timolol Maleate 0.5% Ophth Soln 5 ML Bottle EYELF SCH (07:55)
[2022-11-03] MEDS: diphenhydrAMINE 25 MG Cap PO PRN (22:25)
[2022-11-03] MEDS: Acetaminophen 500 MG Tab PO PRN (22:26)
[2022-11-04] MEDS: Ampicillin/Sulbactam Na 3 GM in Sodium Chloride 0.9% 100 ML IV SCH ×4 (03:47→22:12)
[2022-11-04] MEDS: Sodium Chloride 0.9% 10 ML Syringe FLUSH SCH ×8 (03:47→23:20)
[2022-11-04] MEDS: Timolol Maleate 0.5% Ophth Soln 5 ML Bottle EYELF SCH (07:47)
[2022-11-04] MEDS: Brimonidine 0.2% Ophth Soln 5 ML Bottle EYELF SCH (07:47)
[2022-11-04] MEDS: Glimepiride 2 MG Tab PO SCH ×2 (07:47→17:11)
[2022-11-04] MEDS: Cholecalciferol (Vitamin D3) 25 MCG Tab PO SCH (07:47)
[2022-11-04] MEDS: Aspirin 81 MG Tab.EC PO SCH (07:48)
[2022-11-04] MEDS: Tamsulosin 0.4 MG Cap.ER PO SCH (07:49)
[2022-11-04] MEDS: Ferrous Sulfate 325 MG Tab PO SCH (07:49)
[2022-11-04] MEDS: Finasteride 5 MG Tab PO SCH (07:49)
[2022-11-04] MEDS: Magnesium Oxide 400 MG Tab PO SCH (07:49)
[2022-11-04] MEDS: metFORMIN 500 MG Tab PO SCH ×2 (07:49→17:11)
[2022-11-04] MEDS: Oxybutynin 5 MG Tab.ER PO SCH (07:49)
[2022-11-04] MEDS: atorvaSTATin 20 MG Tab PO SCH (07:49)
[2022-11-04] MEDS: Hydrochlorothiazide 25 MG Tab PO SCH (07:49)
[2022-11-04] MEDS: Lisinopril 20 MG Tab PO SCH (07:49)
[2022-11-04] MEDS: Multivitamin Tab PO SCH (07:50)
[2022-11-05] MEDS: Sodium Chloride 0.9% 10 ML Syringe FLUSH SCH ×8 (03:43→23:00)
[2022-11-05] MEDS: Ampicillin/Sulbactam Na 3 GM in Sodium Chloride 0.9% 100 ML IV SCH ×4 (03:46→21:55)
[2022-11-05] MEDS: Brimonidine 0.2% Ophth Soln 5 ML Bottle EYELF SCH (09:53)
[2022-11-05] MEDS: Timolol Maleate 0.5% Ophth Soln 5 ML Bottle EYELF SCH (09:53)
[2022-11-05] MEDS: Cholecalciferol (Vitamin D3) 25 MCG Tab PO SCH (09:54)
[2022-11-05] MEDS: Glimepiride 2 MG Tab PO SCH ×2 (09:54→17:25)
[2022-11-05] MEDS: Ferrous Sulfate 325 MG Tab PO SCH (09:55)
[2022-11-05] MEDS: Aspirin 81 MG Tab.EC PO SCH (09:55)
[2022-11-05] MEDS: Finasteride 5 MG Tab PO SCH (09:55)
[2022-11-05] MEDS: Hydrochlorothiazide 25 MG Tab PO SCH (09:55)
[2022-11-05] MEDS: Magnesium Oxide 400 MG Tab PO SCH (09:55)
[2022-11-05] MEDS: Oxybutynin 5 MG Tab.ER PO SCH (09:55)
[2022-11-05] MEDS: metFORMIN 500 MG Tab PO SCH ×2 (09:55→17:25)
[2022-11-05] MEDS: atorvaSTATin 20 MG Tab PO SCH (09:55)
[2022-11-05] MEDS: Lisinopril 20 MG Tab PO SCH (09:56)
[2022-11-05] MEDS: Tamsulosin 0.4 MG Cap.ER PO SCH (10:10)
[2022-11-05] MEDS: Multivitamin Tab PO SCH (10:11)
[2022-11-05] MEDS: Acetaminophen 500 MG Tab PO PRN (23:06)
[2022-11-05] MEDS: diphenhydrAMINE 25 MG Cap PO PRN (23:07)
[2022-11-06] MEDS: Sodium Chloride 0.9% 10 ML Syringe FLUSH SCH ×8 (04:17→22:47)
[2022-11-06] MEDS: Ampicillin/Sulbactam Na 3 GM in Sodium Chloride 0.9% 100 ML IV SCH ×4 (04:18→21:42)
[2022-11-06] MEDS: Oxybutynin 5 MG Tab.ER PO SCH (07:47)
[2022-11-06] MEDS: Tamsulosin 0.4 MG Cap.ER PO SCH (07:47)
[2022-11-06] MEDS: Magnesium Oxide 400 MG Tab PO SCH (07:47)
[2022-11-06] MEDS: Finasteride 5 MG Tab PO SCH (07:48)
[2022-11-06] MEDS: Glimepiride 2 MG Tab PO SCH ×2 (07:48→17:27)
[2022-11-06] MEDS: Cholecalciferol (Vitamin D3) 25 MCG Tab PO SCH (07:48)
[2022-11-06] MEDS: Ferrous Sulfate 325 MG Tab PO SCH (07:48)
[2022-11-06] MEDS: Aspirin 81 MG Tab.EC PO SCH (07:48)
[2022-11-06] MEDS: Multivitamin Tab PO SCH (07:48)
[2022-11-06] MEDS: Hydrochlorothiazide 25 MG Tab PO SCH (07:48)
[2022-11-06] MEDS: atorvaSTATin 20 MG Tab PO SCH (07:48)
[2022-11-06] MEDS: metFORMIN 500 MG Tab PO SCH ×2 (07:49→17:27)
[2022-11-06] MEDS: Lisinopril 20 MG Tab PO SCH (07:53)
[2022-11-06] MEDS: Timolol Maleate 0.5% Ophth Soln 5 ML Bottle EYELF SCH (07:59)
[2022-11-06] MEDS: Brimonidine 0.2% Ophth Soln 5 ML Bottle EYELF SCH (08:00)
[2022-11-07] MEDS: diphenhydrAMINE 25 MG Cap PO PRN ×2 (00:10→23:21)
[2022-11-07] MEDS: Acetaminophen 500 MG Tab PO PRN ×2 (00:10→23:20)
[2022-11-07] MEDS: Ampicillin/Sulbactam Na 3 GM in Sodium Chloride 0.9% 100 ML IV SCH ×4 (03:59→21:56)
[2022-11-07] MEDS: Sodium Chloride 0.9% 10 ML Syringe FLUSH SCH ×8 (03:59→21:59)
[2022-11-07] MEDS: Multivitamin Tab PO SCH (08:18)
[2022-11-07] MEDS: metFORMIN 500 MG Tab PO SCH ×2 (08:19→17:19)
[2022-11-07] MEDS: Oxybutynin 5 MG Tab.ER PO SCH (08:19)
[2022-11-07] MEDS: Ferrous Sulfate 325 MG Tab PO SCH (08:22)
[2022-11-07] MEDS: Tamsulosin 0.4 MG Cap.ER PO SCH (08:22)
[2022-11-07] MEDS: Aspirin 81 MG Tab.EC PO SCH (08:22)
[2022-11-07] MEDS: Hydrochlorothiazide 25 MG Tab PO SCH (08:23)
[2022-11-07] MEDS: Magnesium Oxide 400 MG Tab PO SCH (08:23)
[2022-11-07] MEDS: Cholecalciferol (Vitamin D3) 25 MCG Tab PO SCH (08:23)
[2022-11-07] MEDS: Lisinopril 20 MG Tab PO SCH (08:24)
[2022-11-07] MEDS: atorvaSTATin 20 MG Tab PO SCH (08:24)
[2022-11-07] MEDS: Glimepiride 2 MG Tab PO SCH ×2 (08:24→17:18)
[2022-11-07] MEDS: Finasteride 5 MG Tab PO SCH (08:24)
[2022-11-07] MEDS: Timolol Maleate 0.5% Ophth Soln 5 ML Bottle EYELF SCH (08:37)
[2022-11-07] MEDS: Brimonidine 0.2% Ophth Soln 5 ML Bottle EYELF SCH (08:47)
[2022-11-07 09:07] LABS: HEMATOCRIT 35.1 % (39.0-49.0); HEMOGLOBIN 11.4 g/dL (13.1-16.8); LYMPHOCYTES PERCENT AUTO 27.3 % (10.0-50.0); MEAN CORPUSCULAR HEMOGLOBIN 29.4 pg (28.2-33.3); MEAN CORPUSCULAR HGB CONC 32.5 g/dL (31.7-36.0); MEAN CORPUSCULAR VOLUME 90.5 fL (84.0-98.0); NEUTROPHILS PERCENT AUTO 57.7 % (45.0-80.0); PLATELET COUNT,PLT 149 K/uL (150-350); RED BLOOD CELL COUNT 3.88 M/uL (4.33-5.41); RED CELL DISTRIBUTION WIDTH 17.1 % (11.2-14.1); WHITE BLOOD CELL COUNT,WBC 4.4 K/uL (4.0-10.2)
[2022-11-07 09:08] LABS: BASOPHILS ABSOLUTE AUTO 0.03 K/uL (0.00-0.20); BASOPHILS PERCENT AUTO 0.7 % (0.0-2.0); EOSINOPHILS ABSOLUTE AUTO 0.33 K/uL (0.00-0.50); EOSINOPHILS PERCENT AUTO 7.5 % (0.0-5.0); MONOCYTES PERCENT AUTO 6.8 % (2.0-14.0); NEUTROPHILS ABSOLUTE AUTO 2.53 K/uL (1.40-7.00)
[2022-11-07 09:45] LABS: ANION GAP 14.1 meq/L (7-15); CARBON DIOXIDE,CO2 25.9 mmol/L (21.0-32.0); CREATININE 0.99 mg/dL (0.51-1.17); EST CRCL DRUG DOSING (CG) 76.21 mL/min
[2022-11-07 09:46] LABS: ALBUMIN 3.3 g/dL (3.4-5.0); BILIRUBIN TOTAL 0.4 mg/dL (0.2-1.0); CALCIUM 8.9 mg/dL (8.5-10.1); PROTEIN TOTAL,TP 7.3 g/dL (6.4-8.2)
[2022-11-08] MEDS: Sodium Chloride 0.9% 10 ML Syringe FLUSH SCH ×8 (04:07→23:07)
[2022-11-08] MEDS: Ampicillin/Sulbactam Na 3 GM in Sodium Chloride 0.9% 100 ML IV SCH ×4 (04:08→21:59)
[2022-11-08] MEDS: Aspirin 81 MG Tab.EC PO SCH (08:17)
[2022-11-08] MEDS: Lisinopril 20 MG Tab PO SCH (08:18)
[2022-11-08] MEDS: Cholecalciferol (Vitamin D3) 25 MCG Tab PO SCH (08:19)
[2022-11-08] MEDS: Glimepiride 2 MG Tab PO SCH ×2 (08:20→17:15)
[2022-11-08] MEDS: Hydrochlorothiazide 25 MG Tab PO SCH (08:21)
[2022-11-08] MEDS: Magnesium Oxide 400 MG Tab PO SCH (08:21)
[2022-11-08] MEDS: Oxybutynin 5 MG Tab.ER PO SCH (08:21)
[2022-11-08] MEDS: Multivitamin Tab PO SCH (08:21)
[2022-11-08] MEDS: Tamsulosin 0.4 MG Cap.ER PO SCH (08:22)
[2022-11-08] MEDS: metFORMIN 500 MG Tab PO SCH ×2 (08:22→17:14)
[2022-11-08] MEDS: Timolol Maleate 0.5% Ophth Soln 5 ML Bottle EYELF SCH (08:22)
[2022-11-08] MEDS: atorvaSTATin 20 MG Tab PO SCH (08:23)
[2022-11-08] MEDS: Ferrous Sulfate 325 MG Tab PO SCH (08:23)
[2022-11-08] MEDS: Finasteride 5 MG Tab PO SCH (08:23)
[2022-11-08] MEDS: Brimonidine 0.2% Ophth Soln 5 ML Bottle EYELF SCH (08:31)
[2022-11-08] MEDS: Acetaminophen 500 MG Tab PO PRN (23:10)
[2022-11-08] MEDS: diphenhydrAMINE 25 MG Cap PO PRN (23:13)
[2022-11-09] MEDS: Ampicillin/Sulbactam Na 3 GM in Sodium Chloride 0.9% 100 ML IV SCH ×4 (03:54→22:24)
[2022-11-09] MEDS: Sodium Chloride 0.9% 10 ML Syringe FLUSH SCH ×8 (03:59→23:29)
[2022-11-09] MEDS: Timolol Maleate 0.5% Ophth Soln 5 ML Bottle EYELF SCH (07:54)
[2022-11-09] MEDS: Brimonidine 0.2% Ophth Soln 5 ML Bottle EYELF SCH (07:54)
[2022-11-09] MEDS: metFORMIN 500 MG Tab PO SCH ×2 (07:56→17:03)
[2022-11-09] MEDS: Oxybutynin 5 MG Tab.ER PO SCH (07:56)
[2022-11-09] MEDS: Cholecalciferol (Vitamin D3) 25 MCG Tab PO SCH (07:57)
[2022-11-09] MEDS: Finasteride 5 MG Tab PO SCH (07:57)
[2022-11-09] MEDS: Hydrochlorothiazide 25 MG Tab PO SCH (07:57)
[2022-11-09] MEDS: Aspirin 81 MG Tab.EC PO SCH (07:57)
[2022-11-09] MEDS: atorvaSTATin 20 MG Tab PO SCH (07:58)
[2022-11-09] MEDS: Magnesium Oxide 400 MG Tab PO SCH (07:58)
[2022-11-09] MEDS: Multivitamin Tab PO SCH (07:58)
[2022-11-09] MEDS: Lisinopril 20 MG Tab PO SCH (07:58)
[2022-11-09] MEDS: Glimepiride 2 MG Tab PO SCH ×2 (07:58→17:03)
[2022-11-09] MEDS: Ferrous Sulfate 325 MG Tab PO SCH (07:59)
[2022-11-09] MEDS: Tamsulosin 0.4 MG Cap.ER PO SCH (07:59)
[2022-11-10] MEDS: Sodium Chloride 0.9% 10 ML Syringe FLUSH SCH ×9 (04:03→23:33)
[2022-11-10] MEDS: Ampicillin/Sulbactam Na 3 GM in Sodium Chloride 0.9% 100 ML IV SCH ×5 (04:03→22:16)
[2022-11-10] MEDS: Tamsulosin 0.4 MG Cap.ER PO SCH (07:53)
[2022-11-10] MEDS: Oxybutynin 5 MG Tab.ER PO SCH (07:54)
[2022-11-10] MEDS: Cholecalciferol (Vitamin D3) 25 MCG Tab PO SCH (07:56)
[2022-11-10] MEDS: Finasteride 5 MG Tab PO SCH (07:57)
[2022-11-10] MEDS: Glimepiride 2 MG Tab PO SCH ×2 (07:57→18:04)
[2022-11-10] MEDS: Magnesium Oxide 400 MG Tab PO SCH (07:58)
[2022-11-10] MEDS: Ferrous Sulfate 325 MG Tab PO SCH (07:58)
[2022-11-10] MEDS: metFORMIN 500 MG Tab PO SCH ×2 (07:58→18:04)
[2022-11-10] MEDS: Hydrochlorothiazide 25 MG Tab PO SCH (07:58)
[2022-11-10] MEDS: Multivitamin Tab PO SCH (07:59)
[2022-11-10] MEDS: Lisinopril 20 MG Tab PO SCH (07:59)
[2022-11-10] MEDS: Aspirin 81 MG Tab.EC PO SCH (08:00)
[2022-11-10] MEDS: atorvaSTATin 20 MG Tab PO SCH (08:01)
[2022-11-10] MEDS: Brimonidine 0.2% Ophth Soln 5 ML Bottle EYELF SCH (08:01)
[2022-11-10] MEDS: Timolol Maleate 0.5% Ophth Soln 5 ML Bottle EYELF SCH (08:06)
[2022-11-10] MEDS: Acetaminophen 500 MG Tab PO PRN (23:47)
[2022-11-10] MEDS: diphenhydrAMINE 25 MG Cap PO PRN (23:47)
[2022-11-11] MEDS: Sodium Chloride 0.9% 10 ML Syringe FLUSH SCH ×8 (03:54→22:58)
[2022-11-11] MEDS: Ampicillin/Sulbactam Na 3 GM in Sodium Chloride 0.9% 100 ML IV SCH ×4 (03:55→21:58)
[2022-11-11] MEDS: Brimonidine 0.2% Ophth Soln 5 ML Bottle EYELF SCH (08:41)
[2022-11-11] MEDS: Cholecalciferol (Vitamin D3) 25 MCG Tab PO SCH (08:43)
[2022-11-11] MEDS: Tamsulosin 0.4 MG Cap.ER PO SCH (08:44)
[2022-11-11] MEDS: metFORMIN 500 MG Tab PO SCH ×2 (08:44→17:14)
[2022-11-11] MEDS: Oxybutynin 5 MG Tab.ER PO SCH (08:44)
[2022-11-11] MEDS: Ferrous Sulfate 325 MG Tab PO SCH (08:45)
[2022-11-11] MEDS: atorvaSTATin 20 MG Tab PO SCH (08:45)
[2022-11-11] MEDS: Hydrochlorothiazide 25 MG Tab PO SCH (08:45)
[2022-11-11] MEDS: Lisinopril 20 MG Tab PO SCH (08:46)
[2022-11-11] MEDS: Finasteride 5 MG Tab PO SCH (08:47)
[2022-11-11] MEDS: Timolol Maleate 0.5% Ophth Soln 5 ML Bottle EYELF SCH (08:48)
[2022-11-11] MEDS: Aspirin 81 MG Tab.EC PO SCH (08:48)
[2022-11-11] MEDS: Magnesium Oxide 400 MG Tab PO SCH (08:48)
[2022-11-11] MEDS: Multivitamin Tab PO SCH (08:48)
[2022-11-11] MEDS: Glimepiride 2 MG Tab PO SCH ×2 (08:48→17:14)
[2022-11-11] MEDS: diphenhydrAMINE 25 MG Cap PO PRN (23:06)
[2022-11-11] MEDS: Acetaminophen 500 MG Tab PO PRN (23:06)
[2022-11-12] MEDS: Ampicillin/Sulbactam Na 3 GM in Sodium Chloride 0.9% 100 ML IV SCH ×2 (03:56→09:59)
[2022-11-12] MEDS: Sodium Chloride 0.9% 10 ML Syringe FLUSH SCH ×4 (03:56→09:59)
[2022-11-12] MEDS: Timolol Maleate 0.5% Ophth Soln 5 ML Bottle EYELF SCH (07:53)
[2022-11-12] MEDS: Brimonidine 0.2% Ophth Soln 5 ML Bottle EYELF SCH (07:53)
[2022-11-12] MEDS: Cholecalciferol (Vitamin D3) 25 MCG Tab PO SCH (07:54)
[2022-11-12] MEDS: metFORMIN 500 MG Tab PO SCH (07:55)
[2022-11-12] MEDS: Oxybutynin 5 MG Tab.ER PO SCH (07:57)
[2022-11-12] MEDS: Tamsulosin 0.4 MG Cap.ER PO SCH (07:57)
[2022-11-12] MEDS: Multivitamin Tab PO SCH (07:58)
[2022-11-12] MEDS: atorvaSTATin 20 MG Tab PO SCH (07:58)
[2022-11-12] MEDS: Ferrous Sulfate 325 MG Tab PO SCH (07:59)
[2022-11-12] MEDS: Glimepiride 2 MG Tab PO SCH (07:59)
[2022-11-12] MEDS: Magnesium Oxide 400 MG Tab PO SCH (07:59)
[2022-11-12] MEDS: Lisinopril 20 MG Tab PO SCH (08:00)
[2022-11-12] MEDS: Finasteride 5 MG Tab PO SCH (08:00)
[2022-11-12] MEDS: Aspirin 81 MG Tab.EC PO SCH (08:00)
[2022-11-12] MEDS: Hydrochlorothiazide 25 MG Tab PO SCH (08:00)
== END 2022-11-12 14:20 | disposition home or self-care (01) | DRG 420 ==
LOC: LL.MS 14:23
PROVIDERS: ADMIT Emergency Medicine; ATTEND Emergency Medicine
DX: E11.69 Type 2 diabetes mellitus with other specified complication (principal); M86.8X4 Other osteomyelitis, hand; D64.9 Anemia, unspecified; N40.0 Benign prostatic hyperplasia without lower urinary tract symptoms; E11.42 Type 2 diabetes mellitus with diabetic polyneuropathy; E11.319 Type 2 diabetes mellitus with unspecified diabetic retinopathy without macular edema; E78.5 Hyperlipidemia, unspecified; K21.9 Gastro-esophageal reflux disease without esophagitis; I10 Essential (primary) hypertension; E66.9 Obesity, unspecified; E83.42 Hypomagnesemia; Z85.46 Personal history of malignant neoplasm of prostate; Z79.82 Long term (current) use of aspirin; Z89.021 Acquired absence of right finger(s); Z79.4 Long term (current) use of insulin; Z79.899 Other long term (current) drug therapy; Z68.32 Body mass index [BMI] 32.0-32.9, adult
CPT/HCPCS: 36415; 80048; 80053; 82947; 85025; 85027; 97110-GO; 97110-GP; 97161-GP; 97164-GP; 97165-GO; 97530-GO; 97530-GP; 97535-GO; A9270-GY; J0295; J1815-GY; J3490